=== PATIENT | female | born 1940 | race Caucasian/White ===

== ENCOUNTER → 2017-02-10 | Outpatient (CLI) | payer OTHER ==
[~2017-02-10] MED LIST: ACET-1311 PO; ALPRAZALOM PO; ESCI10TA17 PO; IBUP-1050 PO; MIRA100T PO; OXYC-57 PO; PHEN95TA14 PO; SULF800T23 PO
== END | disposition home or self-care (01) ==
LOC: C.LABSPEC 17:24
PROVIDERS: ATTEND Nurse Practitioner Family
DX: R31.0 Gross hematuria (principal)

== ENCOUNTER 2017-02-27 11:26 | Day surgery (SDC) | payer OTHER ==
[2017-02-20 09:26] VITALS: BMI 24.0
--- NOTE | 2017-02-20 09:55 | PAT Medication Instructions ---
Service Date February 20, 2017. Current Home Medication List Acetaminophen (Tylenol), 325 MG PO PRN Escitalopram (Lexapro), 10 MG PO QPM Ibuprofen (Advil), 200 MG PO PRN [Alprazalom], 1 TAB PO HS Medication Instructions For Your Scheduled Surgery - Check with surgeon for instructions: Ibuprofen (Advil), 200 MG PO PRN - Take the following medications the morning of surgery with a sip of water: Acetaminophen (Tylenol), 325 MG PO PRN (if needed) - Take the following medications as scheduled the night before surgery: [Alprazalom], 1 TAB PO HS Acetaminophen (Tylenol), 325 MG PO PRN (if needed) Escitalopram (Lexapro), 10 MG PO QPM If you have any questions please call us at [phone] (Betty Massey PA-C) or [phone] or [phone]
--- NOTE | 2017-02-20 10:38 | DIAGNOSTIC IMAGING REPORT ---
CHEST PREADMISSION(PA/LAT) HISTORY: Preop. COMPARISON: None. FINDINGS: The lungs are clear. Cardiac silhouette is normal in size. No pleural effusions. No pneumothorax. IMPRESSION: No acute process. Electronically signed by: Oz Rubio M.D. 02/20/2017 10:37 AM Dictated Date/Time: 02/20/2017 10:36 AM
[2017-02-20 10:52] LABS: BASO % 0.4 %; BASO ABS # 0.03 K/uL (0-0.2); COMPLETE YES; EOS % 0.5 %; HEMATOCRIT 39.6 % (37-47); IG% 0.1 %; LYMPH % 24.2 %; LYMPH ABS # 1.82 K/uL (1.2-3.4); MEAN CELL VOLUME 90.8 fL (80-100); MEAN CORPUSCULAR HEMOGLOBIN 29.6 pg (25-34); MEAN CORPUSCULAR HGB CONC 32.6 g/dl (32-36); MEAN PLATELET VOLUME 10.6 fL (7.4-10.4); NEUT % 62.8 %; PLATELET COUNT 308 K/uL (130-400); RED BLOOD COUNT 4.36 M/uL (4.2-5.4); WHITE BLOOD COUNT 7.51 K/uL (4.8-10.8)
[2017-02-20 10:58] LABS: BUN/CREATININE RATIO 14.2 (10-20); CALCIUM 9.1 mg/dl (8.5-10.1)
[2017-02-20 15:21] LABS: URINE APPEARANCE CLOUDY (CLEAR); URINE BILIRUBIN NEG (NEG); URINE COLOR DK YELLOW; URINE EPITHELIAL CELL AUTO >30 /lpf (0-5); URINE NITRITE NEG (NEG); URINE SPECIFIC GRAVITY 1.025 (1.000-1.030); UROBILINOGEN NEG (NEG)
[2017-02-20 15:24] LABS: MANUAL MICROSCOPIC REQUIRED? NO; REVIEW REQ? YES
[2017-02-20 15:53] LABS: URINE PATH CASTS 0-3 GRANULAR CASTS /lpf (0)
[~2017-02-27] VITALS: Ht 162.6 cm; Wt 65.4 kg
[~2017-02-27 11:26] MED LIST changes: +CIPROFLOXACIN / D5W 400 MG IV SCH; +LACTATED RINGER'S 1000ML 1,000 ML IV SCH; -MIRA100T PO; +MITOMYCIN FOR INJ 40 MG in SYRINGE 40 ML IR SCH; -OXYC-57 PO; -PHEN95TA14 PO; -SULF800T23 PO
[2017-02-27] MEDS ORDERED: LIDOCAINE HCL 2% 2 ML VIAL (20MG/ML) ONE (12:01)
[2017-02-27] MEDS ORDERED: PROPOFOL IV EMULSION 10 MG/ML 20 ML VIAL IV ONE (12:01)
[2017-02-27] MEDS ORDERED: FENTANYL CITRATE INJ 50 MCG/1 ML 2 ML VIAL ONE (12:01)
[2017-02-27] MEDS ORDERED: MIDAZOLAM HCL 1 MG/ML 2ML VIAL ONE (12:01)
[2017-02-27 12:09] VITALS: BP 165/65; PULSE 70; TEMP 37.1; O2SAT 97; Ht 162.6 cm; Wt 65.4 kg
[2017-02-27] MEDS ORDERED: PHENYLEPHRINE 100MCG/ML 5ML SYR IV PRN (12:15)
[2017-02-27] MEDS ORDERED: ATROPINE SULFATE 0.1 MG/ML 5ML SYR IV PRN (12:15)
[2017-02-27] MEDS ORDERED: EpHEDrine SULFATE INJ 50 MG/ML AMP IV PRN (12:15)
[2017-02-27] MEDS ORDERED: NALOXONE HCL 0.4 MG/1 ML VIAL/CARP IV PRN (12:15)
[2017-02-27] MEDS ORDERED: ONDANSETRON INJ 2 MG/ML 2 ML VIAL IV PRN (12:15)
[2017-02-27] MEDS ORDERED: LABETALOL HCL IV 5 MG/ML 20ML IV PRN (12:15)
[2017-02-27] MEDS ORDERED: MEPERIDINE HCL 25 MG/ML CARP IV PRN (12:15)
[2017-02-27] MEDS ORDERED: FLUMAZENIL 0.1 MG/1 ML 10 ML VIAL IV PRN (12:15)
[2017-02-27] MEDS ORDERED: HYDROmorphone INJ 2 MG/ML SYR/VIAL IV PRN (12:15)
[2017-02-27] MEDS ORDERED: FENTANYL CITRATE INJ 50 MCG/1 ML 2 ML VIAL IV PRN (12:15)
--- NOTE | 2017-02-27 12:15 | History & Physical Bridge Note ---
H&P Re-Evaluation Bridge Note: I have examined the patient, reviewed the History & Physical and in the interval since the performance of the History & Physical I have noted the following changes of clinical significance: No changes noted
[2017-02-27] MEDS ORDERED: MIRA100T PO ×2 (12:33→14:07)
[2017-02-27] MEDS ORDERED: EpHEDrine SULFATE INJ 50 MG/ML AMP ONE (13:47)
[2017-02-27] MEDS ORDERED: BELLADONNA/OPIUM SUPP 60 MG SUPP PR ONE ×2 (13:52)
[2017-02-27] MEDS ORDERED: SODIUM CHLORIDE 0.9% 1000ML 1,000 ML IV SCH (14:04)
--- NOTE | 2017-02-27 14:04 | [facility] Post Operative Brief Note ---
Immediate Operative Summary Operative Date Feb 27, 2017. Pre-Operative Diagnosis Bladder Tumor Post-Operative Diagnosis Bladder Tumor Procedure(s) Performed Cystoscopy, Transurethral Resection Bladder Tumor and instillation of Mitomycin C Surgeon Mortgage Professional Surgeon(s) None Estimated Blood Loss 0ml Findings Papillary bladder tumors; several on the left lateral wall, immediately posterior to the UO (not involving the UO). Numerous (10-20+) tiny tumors located peripherally around the more developed tumors. The largest tumors were resected with the small tumors completely fulgurated. Mitomycin C instilled at the conclusion of the case. Specimens A. Bladder Tumor Left Lateral Wall. Drains 16F More Anesthesia Gen Complication(s) None Disposition Recovery Room / PACU (stable)
[2017-02-27] MEDS ORDERED: OXYC-57 PO (14:07)
[2017-02-27] MEDS ORDERED: PHEN95TA14 PO (14:07)
[2017-02-27] MEDS ORDERED: SULF800T23 PO (14:07)
--- NOTE | 2017-02-27 14:12 | Discharge Instructions ---
Discharge Instructions Date of Service Feb 27, 2017. Admission Reason for Admission: Bladder Cancer Discharge Discharge Diagnosis / Problem: Bladder cancer Discharge Goals Goal(s): Decrease discomfort, Improve function, Increase independence, Improve disease control Activity Recommendations Activity Limitations: resume your previous activity Lifting Limitations: none Exercise/Sports Limitations: none May Resume Sexual Activity: when tolerated Shower/Bathe: no limitations Driving or Machine Use: no limitations . Instructions / Follow-Up Instructions / Follow-Up Please come to Dr. Hernandez's office on March 12 at 3:30PM. Discharge Diet Recommended Diet: Regular Diet Procedures Procedures Performed: Cystoscopy, Transurethral Resection Bladder Tumor and instillation of Mitomycin C Pending Studies Studies pending at discharge: no Medical Emergencies . Who to Call and When: Medical Emergencies: If at any time you feel your situation is an emergency, please call 911 immediately. . Non-Emergent Contact Non-Emergency issues call your: Urologist Call Non-Emergent contact if: you have a fever, temperature is above 101.5, your pain is not controlled, your pain is worsening . . "Provider Documentation" section prepared by Charles Bhandari. . VTE Core Measure Inpt VTE Proph given/why not?: Treatment not indicated
[2017-02-27] MEDS ORDERED: HYDROCODONE/ACETAMOPHEN 5/325MG TAB PO PRN ×2 (14:15)
[2017-02-27] MEDS ORDERED: ACETAMINOPHEN 325 MG TAB PO PRN (14:15)
[2017-02-27] MEDS ORDERED: HydrALAZINE HCL 20 MG/ML VIAL ONE (14:44)
[2017-02-27] MEDS ORDERED: HydrALAZINE HCL 20 MG/ML VIAL IV. STA (14:55)
--- NOTE | 2017-02-27 14:56 | Anesthesiology Progress Note ---
Anesthesia Post Op Note Date & Time Feb 27, 2017 at 14:55 Vital Signs Pain Intensity: 2 Vital Signs Past 12 Hours Date Time Temp Pulse Resp B/P (MAP) Pulse Ox O2 Delivery O2 Flow Rate FiO2 02/27/17 14:48 59 13 02/27/17 14:48 58 13 98 02/27/17 14:47 183/66 02/27/17 14:43 56 9 97 02/27/17 14:43 56 9 02/27/17 14:42 212/90 02/27/17 14:38 55 9 99 02/27/17 14:38 55 9 02/27/17 14:37 194/69 02/27/17 14:33 55 13 02/27/17 14:33 55 13 99 02/27/17 14:32 184/77 02/27/17 14:31 60 11 02/27/17 14:31 58 11 02/27/17 14:27 181/81 02/27/17 14:26 57 12 02/27/17 14:26 57 12 02/27/17 14:22 183/66 02/27/17 14:21 59 11 02/27/17 14:21 57 11 02/27/17 14:17 210/74 02/27/17 14:16 67 11 02/27/17 14:16 11 02/27/17 14:11 76 11 02/27/17 14:11 76 11 100 02/27/17 14:11 36.4 72 12 210/74 100 Mask 10 02/27/17 12:09 37.1 70 16 165/65 (98) 97 Room Air Notes Mental Status: alert / awake / arousable, participated in evaluation Pt Amnestic to Procedure: Yes Nausea / Vomiting: adequately controlled Pain: adequately controlled Airway Patency, RR, SpO2: stable & adequate BP & HR: stable & adequate, see Notes Hydration State: stable & adequate Anesthetic Complications: no major complications apparent The patient was hypertensive in PACU, but was treated with labetalol and hydralazine. Her BP is now at her baseline. Her other vital signs are stable and she is comfortable.
[2017-02-27 15:05] VITALS: BP 150/54; PULSE 69; TEMP 36.4; O2SAT 100
[2017-02-27 15:35] VITALS: BP 139/55; PULSE 75; TEMP 36.4; O2SAT 100
--- NOTE | 2017-02-27 15:40 | OPERATIVE REPORT ---
DATE OF OPERATION: 02/27/2017 PREOPERATIVE DIAGNOSIS: Bladder tumor. POSTOPERATIVE DIAGNOSIS: Bladder tumors, multifocal. PROCEDURE PERFORMED: Cystoscopy, transurethral resection of bladder tumor and instillation of mitomycin-C. ANESTHESIA: General. ESTIMATED BLOOD LOSS: 0 mL. URINE OUTPUT: Not recorded. DRAINS: A 16-Polish More catheter. SPECIMENS: Bladder tumor for routine pathology. DESCRIPTION OF THE PROCEDURE: Alina Gamez was identified in the preoperative holding area. Appropriate informed consents were reviewed and completed and she was transported to the operating suite. She received appropriate preoperative antibiotics in the form of Cipro and then general anesthesia. She was placed in dorsal lithotomy position and sterilely prepped and draped in standard fashion. I began the case by passing a 24 Polish resectoscope with 30 degree lens and visual obturator. Full inspection was carried out with 30 and 70 degree lenses of the bladder. She was noted papillary appearing bladder tumors arising from the left posterior lateral bladder wall, approximately 4-5 cm posterior to the ureteral orifice. The largest of these tumors were all in a very small area; however, there were numerous tumors scattered around the periphery of these primary tumors. I would estimate 20+ small satellite tumors. These were all extremely superficial in appearance and with slight scraping utilizing a resecting loop, they were able to be dislodged without use of cautery. I began the procedure by passing actually a biopsy forceps to attempt to take large noncauterized pieces of this tumor out. I focused on the large tumor and a series of approximately 6 pieces, I was able to remove the bulk of the tumor. I then used the cautery loop to fulgurate the base of these tumors and flat with the rest of the bladder wall and then I proceeded to perform fulguration of all the visible tumors in the periphery around the main tumor. In total, this treated an area of approximately 5 cm2; however, the main tumor area was approximately 2 cm2. After confirming that I had treated all visible tumors, I drained the bladder and I passed a 16 Polish More catheter. We then instilled 40 mg of mitomycin-C and 40 mL of water and I clamped the catheter leaving this in place for approximately 1 hour. The patient was extubated and taken to the PACU in stable condition. I attest to the content of the Intraoperative Record and any orders documented therein. Any exception s are noted below.
[2017-02-27 16:30] VITALS: BP 151/70; PULSE 81; TEMP 36.4; O2SAT 100
[2017-02-27] MEDS ORDERED: TAMSULOSIN HCL 0.4 MG CAP PO SCH (21:00)
== END 2017-02-27 17:14 | disposition home or self-care (01) ==
LOC: C.ACU 11:26
PROVIDERS: ATTEND Urology
DX: C67.2 Malignant neoplasm of lateral wall of bladder (principal)